=== PATIENT | female | born 1975 | race Caucasian/White ===

== ENCOUNTER → 2019-02-12 08:18 | Outpatient (CLI) | payer BC, SELFPAY ==
[2019-02-12 10:20] LABS: Alanine Aminotransferase 15 U/L (12-78); Albumin/Globulin Ratio 1.4 (1.1-1.8); Alkaline Phosphatase 63 U/L (46-116); Anion Gap 11.3 mEq/L (5-15); Aspartate Amino Transferase 11 U/L (15-37); Bilirubin,Total 0.4 mg/dL (0.2-1.0); Blood Urea Nitrogen 14 mg/dL (7-18); Calcium 8.8 mg/dL (8.5-10.1); Carbon Dioxide 27 mmol/L (21.0-32.0); Chloride 105 mmol/L (98-107); Cholesterol 198 mg/dL (140-200); Estimated Glomerular Filt Rate 68 ml/min (>60); GFR (African American) 82 ML/MIN (>60); Globulin 2.8 gm/dl (1.3-3.2); Glucose 88 mg/dL (74-106); HDL Cholesterol 101 mg/dL (29-89); LDL Cholesterol 90 mg/dL (0-130); Potassium 4.3 mmoL/L (3.5-5.1); Sodium 139 mmol/L (136-145); Thyroid Stimulating Hormone 1.87 uIU/ml (0.358-3.740); Total Protein,Serum 6.8 gm/dL (6.4-8.2); Triglycerides 37 mg/dL (30-200); VLDL Cholesterol 7 mg/dL (0-40)
[2019-02-13 11:01] LABS: Vitamin B12 508 pg/mL (232-1245); Vitamin D 25 Hydroxy 34.2 ng/mL (30.0-100.0)
== END ==
PROVIDERS: Visit Provider Physician Assistant
DX: E53.8 Deficiency of other specified B group vitamins (principal); E55.9 Vitamin D deficiency, unspecified; Z13.29 Encounter for screening for other suspected endocrine disorder; Z13.220 Encounter for screening for lipoid disorders
CPT/HCPCS: 36415; 80053; 80061; 82607; 82652; 84443

== ENCOUNTER → 2019-10-27 16:46 | Outpatient (CLI) | payer BC, SELFPAY ==
--- NOTE | 2019-10-27 | XR_ITS ---
PROCEDURE: XR FOOT LT MIN 3V CLINICAL INDICATION: Pain COMPARISON: No exams were available for comparison FINDINGS: No fracture or dislocation. No lytic or blastic change. There is normal mineralization. The joint spaces are well-preserved. No significant degenerative/arthritic changes. No erosive changes evident. Other findings:None. IMPRESSION: No acute findings. Dictated by: Lc Woodson MD 10/27/2019 17:27 Electronically signed by Lc Woodson MD in [place] 10/27/2019 17:27
== END ==
PROVIDERS: PCP Family Medicine; Visit Provider Family Medicine
DX: M79.672 Pain in left foot (principal)
CPT/HCPCS: 73630

== ENCOUNTER → 2021-03-21 15:54 | Outpatient (CLI) | payer BC, SELFPAY ==
[2021-03-21 16:53] LABS: Erythrocyte Sedimentation Rate 10 mm/hr (0-20)
[2021-03-21 17:31] LABS: Uric Acid 5.1 mg/dl (2.5-6.2)
[2021-03-23 08:17] LABS: RA Latex Turbid. <10.0 IU/mL (<14.0)
[2021-03-24 20:29] LABS: Antinuclear Antibodies, IFA Negative (.)
== END ==
PROVIDERS: Visit Provider Physician Assistant
DX: M25.50 Pain in unspecified joint (principal)
CPT/HCPCS: 36415; 84550; 85651; 86038; 86431

== ENCOUNTER 2023-11-15 16:00 | Outpatient (CLI) | payer BC, SELFPAY ==
--- NOTE | 2023-11-15 16:04 | XR_ITS ---
FINAL REPORT CLINICAL HISTORY: TOE PAIN IN LEFT FOOT, 2nd digit x 2 months COMPARISON: None FINDINGS: LEFT FOOT: Three views show no evidence of acute displaced fracture or dislocation of the visualized bony architecture. The joint spaces appear normal. IMPRESSION: Unremarkable exam. Reviewed, Interpreted and Dictated by Vale Carson MD Transcribed by Ember Rao Authenticated and [facility]
== END 2023-11-15 23:59 | disposition home or self-care (01) ==
LOC: RAD 16:02
PROVIDERS: PCP Physician Assistant; Visit Provider Physician Assistant
DX: M79.675 Pain in left toe(s) (principal)
CPT/HCPCS: 73630

== ENCOUNTER 2024-04-30 15:14 | Outpatient (CLI) | payer BC, SELFPAY ==
--- NOTE | 2024-04-30 15:19 | XR_ITS ---
FINAL REPORT TECHNIQUE: Chest PA & Lateral CLINICAL HISTORY: .respiratory crackles at rt lung base COMPARISON: None FINDINGS: 2 views of the chest were performed. The heart size is normal. The mediastinum is within normal limits. The right lung is clear. There is a dense airspace opacity in the left lung base consistent with acute pneumonia. There are no pleural effusions. There is no pneumothorax. The bony thorax appears intact. IMPRESSION: Acute pneumonia left lung base. Reviewed, Interpreted and Dictated by Jeffrey Villegas MD Transcribed by Demetria Deshpande Authenticated and . [facility]
== END 2024-04-30 23:59 | disposition home or self-care (01) ==
LOC: RAD 15:16
PROVIDERS: PCP Physician Assistant; Visit Provider Physician Assistant
DX: R09.89 Other specified symptoms and signs involving the circulatory and respiratory systems (principal)
CPT/HCPCS: 71046